=== PATIENT | male | born 1960 | race Caucasian/White ===

== ENCOUNTER → 2019-11-22 11:37 | Outpatient (BNVA) | payer MEDICARE, SELFPAY | PROVIDERS: Family Provider Family Medicine; PCP Nurse Practitioner Family; Visit Provider Nurse Practitioner Family | DX: R10.9 Unspecified abdominal pain (principal); R07.81 Pleurodynia; R91.1 Solitary pulmonary nodule | CPT/HCPCS: 71046; 71047 ==

== ENCOUNTER → 2025-01-25 12:55 | Outpatient (BNVA) | payer MEDICARE, MEDICAID, SELFPAY | PROVIDERS: Family Provider Family Medicine; PCP Nurse Practitioner Family; Referring Provider Family Medicine; Visit Provider Nurse Practitioner Family | DX: M54.12 Radiculopathy, cervical region (principal); M54.16 Radiculopathy, lumbar region; G89.29 Other chronic pain; M25.512 Pain in left shoulder; M25.511 Pain in right shoulder | CPT/HCPCS: 72040; 73030; 99214 ==

== ENCOUNTER 2025-02-01 06:00 | Outpatient (RCR) | payer MEDICARE, SELFPAY | END 2025-03-02 23:59 | disposition home or self-care (01) | LOC: MPT 06:00 | PROVIDERS: PCP Family Medicine; Visit Provider Nurse Practitioner Family | DX: M54.50 Low back pain, unspecified (principal); G89.29 Other chronic pain | CPT/HCPCS: 97110; 97162; G0283 ==

== ENCOUNTER → 2025-02-01 13:51 | Outpatient (BNVA) | payer MEDICARE, SELFPAY | PROVIDERS: Visit Provider Nurse Practitioner Family | DX: M79.18 Myalgia, other site (principal); M54.12 Radiculopathy, cervical region; G89.29 Other chronic pain; M54.16 Radiculopathy, lumbar region | CPT/HCPCS: 20553; 99214; J1010; J3490 ==

== ENCOUNTER 2025-02-07 15:35 | Outpatient (CLI) | payer MEDICARE, SELFPAY ==
--- NOTE | 2025-02-07 16:00 | MR_ITS ---
WS: [id number] MRI CERVICAL SPINE NONCONTRAST HISTORY: M54.12 - Radiculopathy, cervical region COMPARISON: None available. Technique: Multiplanar, multisequence noncontrast imaging of the cervical spine. Straightening and reversal of the normal cervical lordosis. Reversal centered at C5. Asymmetric disc space narrowing at C4-5 and C5-6. Disc spaces are all narrowed with hypertrophic osteophytes at each vertebral body level. Disc bulging at several levels. Signal within the cervical cord is normal. Visualized posterior fossa is unremarkable. Craniocervical junction, C1 and C2 relationship, odontoid process and soft tissues are normal. C2-C3: Normal. C3-C4: Mild facet arthritis. No stenosis. C4-C5: Diffuse annular disc bulging with osteophytic ridging. Effacement of ventral CSF and mild central stenosis. Larger disc osteophyte complex in the foramina, LEFT greater than RIGHT. Severe LEFT and mild RIGHT foraminal stenosis. C5-C6: Diffuse annular disc bulging with osteophytic ridging and facet arthritis. Effacement of ventral CSF and slight deformity of the ventral cord. Moderate central with severe bilateral foraminal stenosis due to disc osteophyte disease. C6-C7: Diffuse annular disc bulging with osteophytic ridging and facet arthritis. Moderate to severe central with bilateral foraminal stenosis. Effacement of CSF and deformity of the ventral cord. C7-T1: Mild facet arthritis. No stenosis. Paraspinal soft tissue are normal. MR/MR cervical spin wo con* [id number] IMPRESSION: 1. Reversal the normal cervical lordosis centered at C5. 2. Multilevel areas of significant stenosis due to combination of disc and ost eophyte complex and facet arthritis. Cord contact with mild effacement C4-5, C5 -6 and C6-7. 3. C4-5: Severe LEFT and mild RIGHT foraminal stenosis and mild central stenos is. 4. C5-6: Moderate central with severe bilateral foraminal stenosis. 5. C6-7: Moderate to severe central and bilateral foraminal stenosis.
== END 2025-02-07 15:36 | disposition home or self-care (01) ==
PROVIDERS: PCP Family Medicine; Visit Provider Nurse Practitioner Family
DX: M54.12 Radiculopathy, cervical region (principal); R93.7 Abnormal findings on diagnostic imaging of other parts of musculoskeletal system; M48.02 Spinal stenosis, cervical region; M25.78 Osteophyte, vertebrae; M47.892 Other spondylosis, cervical region; M50.321 Other cervical disc degeneration at C4-C5 level; M50.322 Other cervical disc degeneration at C5-C6 level; M50.323 Other cervical disc degeneration at C6-C7 level; M47.893 Other spondylosis, cervicothoracic region
CPT/HCPCS: 72141

== ENCOUNTER → 2025-02-10 14:09 | Outpatient (BNVA) | payer MEDICARE, SELFPAY | PROVIDERS: PCP Family Medicine; Visit Provider Orthopaedic Surgery | DX: M54.16 Radiculopathy, lumbar region (principal); G89.29 Other chronic pain; M54.12 Radiculopathy, cervical region | CPT/HCPCS: 36415; 72050; 72110; 80053; 81003; 85025; 99204 ==

== ENCOUNTER → 2025-02-15 13:32 | Outpatient (BNVA) | payer MEDICARE, SELFPAY | PROVIDERS: PCP Family Medicine; Visit Provider Nurse Practitioner Family | DX: M54.16 Radiculopathy, lumbar region (principal); G89.29 Other chronic pain; M54.12 Radiculopathy, cervical region | CPT/HCPCS: 99213 ==

== ENCOUNTER 2025-03-03 06:30 | Outpatient (RCR) | payer MEDICARE, SELFPAY | END 2025-03-16 13:00 | disposition home or self-care (01) | LOC: MPT 06:30 | PROVIDERS: PCP Family Medicine; Visit Provider Nurse Practitioner Family | DX: M54.50 Low back pain, unspecified (principal); G89.29 Other chronic pain | CPT/HCPCS: 97110; G0283 ==

== ENCOUNTER → 2025-03-04 10:16 | Outpatient (BNVA) | payer MEDICARE, SELFPAY | PROVIDERS: PCP Family Medicine; Visit Provider Family Medicine | DX: Z01.818 Encounter for other preprocedural examination (principal) | CPT/HCPCS: 93005 ==

== ENCOUNTER 2025-03-14 17:30 | Inpatient (IN) | payer MEDICARE, SELFPAY ==
[2025-03-14] VITALS (18 sets, daily range): BP systolic 109–174; BP diastolic 67–104; PULSE 71–90; RESP 13–21; TEMP 36.2–37.2; O2SAT 90–98; BMI 36.6
[2025-03-14] MEDS: sodium chloride 0.9% 1,000 ML 30 ML IV (13:06)
--- NOTE | 2025-03-14 13:11 | ANES.PREANE2 ---
Pre-Anesthetic Assessment Height/Weight: Height 1.73 m Weight 109.316 kg Temp Pulse Resp BP Pulse Ox O2 Del Method 98.1 F 71 18 152/83 98 Room Air 03/14/25 12:47 03/14/25 12:47 03/14/25 12:47 03/14/25 12:47 03/14/25 12:47 03/14/25 12:47 Preop Diagnosis: Cervical stenosis with myelopathy and radiculopathy Operation Date: 03/14/25 14:30 Proposed Procedures p Anterior Cervical Discectomy & Fusion ACDF w/ Anterior Interbody Fusion w/ Cage w/ Instrumentation w/ Allograft w/ Navigation(Not Applicable) - Dante Bennett DO Last intake: Intake Last Liquid Date 03/14/25 Last Liquid Time 11:30 Last Solid Date 03/13/25 Last Solid Time 20:00 Social No alcohol and No tobacco Exam alert, oriented x 3, clear to auscultation bilaterally and regular rate & rhythm Airway Submandibular: within normal limits Cervical ROM: Other (limited by radiculopathy ) History/ROS No significant history except as noted Musc/skel Cervical stenosis multilevel Anesthetic Plan ASA status: 3 Anesthesia: General Medications/Allergies Home Medications ?Medication ?Instructions ?Recorded ?Confirmed ?Last Taken ?Type ascorbic acid (vitamin C) 500 mg 500 mg PO DAILY 11/22/19 03/10/25 03/09/25 History capsule B12 1 tab PO DAILY 01/25/25 03/10/25 03/09/25 History Potassium 99 mg PO DAILY 01/25/25 03/10/25 03/09/25 History acetaminophen 325 mg tablet 325 mg PO QID PRN Pain 01/25/25 03/10/25 03/13/25 History (Tylenol) fenofibrate nanocrystallized 145 145 mg PO DAILY 01/25/25 03/10/25 03/13/25 History mg tablet tizanidine 4 mg tablet 4 mg PO BID PRN muscle spasticity 02/16/25 03/10/25 03/13/25 Rx #60 tabs Allergies Allergy/AdvReac Type Severity Reaction Status Date / Time oxycodone (From OxyContin) AdvReac Mild itching Verified 03/10/25 13:04 Current Medications Generic Name Dose Route Start Last Admin Trade Name Freq PRN Reason Stop Dose Admin Sodium Chloride 1,000 mls @ 30 mls/hr 03/14/25 06:30 03/14/25 13:06 Sodium Chloride 0.9% IV 03/15/25 06:29 30 mls/hr .Q24H LIVIER Administration PFSH Anesthesia Surgical History History of appendectomy H/O shoulder surgery Hx of tonsillectomy Family History Denies family history of Hyperlipidemia Hypertension Social History Smoking and tobacco/nicotine status: former use of tobacco/nicotine Data Anesthesia 03/14/25 12:54
[2025-03-14 13:14] LABS: Basophils # 0.1 10^3/uL (0.0-0.1); Basophils % 0.6 %; Eosinophils # 0.3 10^3/uL (0.0-0.8); Hematocrit 44.3 % (37-53); Lymphocytes # 2.6 10^3/uL (0.8-4.8); Lymphocytes % 25.2 %; Mean Corpuscular HGB Conc 33.6 g/dL (30-55); Mean Corpuscular Hemoglobin 30.6 pg (27-33); Mean Platelet Volume 9.7 fL (7.4-10.4); Monocytes # 1.1 10^3/uL (0.2-0.9); Monocytes % 10.4 %; Neutrophils # 6.12 10^3/uL (1.8-7.7); Neutrophils % 59.6 %; Nucleated Red Blood Cells % 0 %; Platelet Count 291 10^3/cmm (157-399); Red Blood Count 4.87 10^6/uL (3.85-5.65); Red Cell Distribution Width 13.2 % (12.1-15.1); White Blood Count 10.27 10^3/uL (3.29-11.43)
[2025-03-14] MEDS: ceFAZolin 2,000 mg SDV 2000 MG IVP ×2 (13:21→22:49)
[2025-03-14] MEDS: lidocaine-epi 1% 20 mL INJ 10 ML INJECTION (15:44)
--- NOTE | 2025-03-14 16:37 | XR_ITS ---
WS: [id number] Exam: XR lumbar spine 2-3V* [id number] Date/Time of Exam: 03/14/2025 4:37 PM Reason For Exam: OR PICS Limited AP and lateral C-arm images of the C-spine are submitted. Images were obtained for intraoperative visualization purposes.
--- NOTE | 2025-03-14 17:15 | P.OP_ITS ---
Operative Report Date of procedure: March 14, 2025 Pre-op diagnosis: Cervical stenosis with myelopathy Post-op diagnosis: same Procedure done: 1. Anterior discectomy C3/4 2. Anterior discectomy C4/5 3. Anterior diskectomy C5/6 4. Anterior discectomy C6/7 5. Insertion of cage at C3/4 6. Insertion of cage at C4/5 7. Insertion of cage C5/6 8. Insertion of Cage C6/7 9. Instrumentation with anterior plate from C3-C7 10. Use of allograft Surgeon: Dante Bennett DO Estimated blood loss (mL): 100 Procedure: 1. Anterior discectomy C3/4 2. Anterior discectomy C4/5 3. Anterior diskectomy C5/6 4. Anterior discectomy C6/7 5. Insertion of cage at C3/4 6. Insertion of cage at C4/5 7. Insertion of cage C5/6 8. Insertion of Cage C6/7 9. Instrumentation with anterior plate from C3-C7 10. Use of allograft The patient was taken to the operating room, where he underwent general endotracheal anesthesia without complications. He was then positioned supine on the operating table, and all areas of impingement were well padded. The arms were carefully padded and tucked at his sides. A roll was placed between the shoulder blades.. An x-ray was done to determine the appropriate level for the skin incision. The entire neck was then sterilely prepped and draped in the usual fashion. Neuromonitoring was attached prior to prepping. A transverse skin incision was made and carried down to the platysma muscle. This was then split in line with its fibers. Blunt dissection was carried down medial to the carotid sheath and lateral to the trachea and esophagus until the anterior cervical spine was visualized. A needle was placed into a disc and an x-ray was done to determine its location. The longus colli muscles were then elevated bilaterally with the electrocautery unit. Self-retaining retractors were placed deep to the longus colli muscle. The x-ray was taken patient still had a kyphotic deformity at C3-4 level at this point felt like patient was given collapse above the C4-7 construct so I elected to proceed with doing a C3-4 ACDF as well. Attention was brought to the C3/4 level that was confirmed on x-ray. A caspar pin was placed into the C3 vertebrae and the C4 vertebrae. The disk space was then distracted. The microscope was then brought in. A radical anterior discectomies were performed at C3/4. This included complete removal of the anterior annulus, nucleus, and posterior annulus. The posterior longitudinal ligament was removed as were the posterior osteophytes. Foraminotomies were then accomplished bilaterally. This was done using a high speed vandana, kerrison rongeurs and curretes Once all of this was accomplished, the curved currette was used to check for any residual compression. The central canal was wide open as were the foramen. A high-speed bur was used to remove the cartilaginous endplates above and below the interspace. Bleeding cancellous bone was exposed. The disc space were measured and appropriate size cage were placed sterilely onto the field. Allograft graft was packed into the cages. The cage was then placed and there was good juxtaposition against the bleeding decorticated surfaces and good distraction of each interspace. Attention was brought to the next interspace. The Saint Helen pins were removed. Bone wax was used to prevent any bleeding from occurring at the pin sites. Attention was brought to the C4/5 level that was confirmed on x-ray. A caspar pin was placed into the C4 vertebrae and the C5 vertebrae. The disk space was then distracted. The microscope was then brought in. A radical anterior discectomies were performed at C4/5. This included complete removal of the anterior annulus, nucleus, and posterior annulus. The posterior longitudinal ligament was removed as were the posterior osteophytes. Foraminotomies were then accomplished bilaterally. This was done using a high speed vandana, kerrison jamie geurs and curretes Once all of this was accomplished, the curved currette was used to check for any residual compression. The central canal was wide open as were the foramen. A high-speed bur was used to remove the cartilaginous endplates above and below the interspace. Bleeding cancellous bone was exposed. The disc space were measured and appropriate size cage were placed sterilely onto the field. Allograft graft was packed into the cages. The cage was then placed and there was good juxtaposition against the bleeding decorticated surfaces and good distraction of each interspace. Attention was brought to the next interspace. The [place] Helen pins were removed. Bone wax was used to prevent any bleeding from occurring at the pin sites. Attention was brought to the C5/6 level that was confirmed on x-ray. A caspar pin was placed into the C5 vertebrae and the C6 vertebrae. The disk space was then distracted. The microscope was then brought in. A radical anterior discectomies were performed at C5/6. This included complete removal of the anterior annulus, nucleus, and posterior annulus. The posterior longitudinal ligament was removed as were the posterior osteophytes. Foraminotomies were then accomplished bilaterally. This was done using a high speed vandana, kerrison rongeurs and curretes Once all of this was accomplished, the curved currette was used to check for any residual compression. The central canal was wide open as were the foramen. A high-speed bur was used to remove the cartilaginous endplates above and below the interspace. Bleeding cancellous bone was exposed. The disc space were measured and appropriate size cage were placed sterilely onto the field. Allograft graft was packed into the cages. The cage was then placed and there was good juxtaposition against the bleeding decorticated surfaces and good distraction of each interspace. Attention was brought to the next interspace. The Saint Helen pins were removed. Bone wax was used to prevent any bleeding from oc curring at the pin sites. Attention was brought to the C6/7 level that was confirmed on x-ray. A caspar pin was placed into the C6 vertebrae and the C7 vertebrae. The disk space was then distracted. The microscope was then brought in. A radical anterior discectomies were performed at C6/7. This included complete removal of the anterior annulus, nucleus, and posterior annulus. The posterior longitudinal ligament was removed as were the posterior osteophytes. Foraminotomies were then accomplished bilaterally. This was done using a high speed vandana, kerrison rongeurs and curretes Once all of this was accomplished, the curved currette was used to check for any residual compression. The central canal was wide open as were the foramen. A high-speed bur was used to remove the cartilaginous endplates above and below the interspace. Bleeding cancellous bone was exposed. The disc space were measured and appropriate size cage were placed sterilely onto the field. Allograft graft was packed into the cages. The cage was then placed and there was good juxtaposition against the bleeding decorticated surfaces and good distraction of each interspace. The Saint Helen pins were removed. Bone wax was used to prevent any bleeding from occurring at the pin sites. The appropriate size anterior cervical locking plate was chosen and bent into gentle lordosis. Two screws were then placed into each of the vertebral bodies at C3, C4, C5, C6 and C7. There was excellent purchase. A final x-ray was done confirming good position of the hardware and Cages. The locking screws were then applied, also with excellent purchase. Following a final copious irrigation, there was good hemostasis and no dural leaks. The carotid pulse was strong. The wounds were then closed in layers using 2-0 Vicryl suture for the platysma muscle, 2-0 Vicryl suture for the subcutaneous tissue, and 4-0 monocryl suture in a subcuticular skin closure. Glue was placed followed by application of a sterile dressing. The drain was hooked to bulb suction. A soft collar was applied. The patient was then carefully returned to the supine position on his hospital bed where he was reversed and extubated and taken to the recovery room having tolerated the procedure well.
--- NOTE | 2025-03-14 18:04 | ANE.PACU2 ---
Inpatient post-anesthesia follow up: Airway intact: Yes Vital signs: Temperature 98.2 F Pulse Rate 79 Respiratory Rate 14 Blood Pressure 117/67 Pulse Oximetry 94 Oxygen Delivery Me thod Nasal Cannula Oxygen Flow Rate 2 Fraction of Inspir ed Oxygen Hydration adequate: Yes Nausea and vomiting: No Pain level: well controlled Mental status: Baseline Additional Comments: plan to use O2/BIPAP/continuous oximetry for immediate post op period. Respiratory consult initiated.
--- NOTE | 2025-03-14 18:16 | PC.NURSE ---
Patient taken to room 252-2 via bed accompanied by 2. VS taken Temp 98.9, Hr 82, RR 18, BP 127/74, 93% on 2LNC. Lashaun, RN at bedside, RT at bedside setting up BIPAP per Dr. Laird's orders.
[2025-03-14] MEDS: ketorolac 30 mg/mL INJ IVP (18:33)
[2025-03-14] MEDS: lactated ringers 1,000 ML 90 ML IV (18:33)
--- OUTSIDE RECORDS SUMMARY | 2025-03-14 21:22 | XMS_ITS | Encounter Summary ---
Author Organization [facility] Address [address] [place] [address] Care Team Providers Care Director Of Field Coordination Name Role Phone Unavailable Primary Care Provider Unavailabl e Encounter Details Date Type Department Care Team (Latest Contact Info) Description 11/19/2005 Outpatient Historical [facility] Orthopedics- 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
--- OUTSIDE RECORDS SUMMARY | 2025-03-14 21:22 | XMS_ITS | Encounter Summary ---
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
--- OUTSIDE RECORDS SUMMARY | 2025-03-14 21:22 | XMS_ITS | Encounter Summary ---
Author Organization [facility] Address [address] [place] [address] Care Team Providers Care Engagement Quality Consultant Name Role Phone Unavailable Primary Care Provider Unavailabl e Encounter Details Date Type Department Care Team (Late st Contact Info) Description 10/30/2005 Emergency [facility] Emergency Department [address] 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
--- OUTSIDE RECORDS SUMMARY | 2025-03-14 21:22 | XMS_ITS | Clinical Summary ---
Author Organization [email or web address] Address [address] 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
--- OUTSIDE RECORDS SUMMARY | 2025-03-14 21:22 | XMS_ITS | Encounter Summary ---
Author Organization [facility] Address [address] [place] [address] Care Team Providers Care Discharge Door Operator Name Role Phone Unavailable Primary Care Provider Unavailabl e Encounter Details Date Type Department Care Team (Latest Contact Info) Description 11/26/2005 Outpatient Historical [facility] Orthopedics- 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
--- OUTSIDE RECORDS SUMMARY | 2025-03-14 21:22 | XMS_ITS | Encounter Summary ---
Author Organization [facility] Address [address] [place] [address] Care Team Providers Care Load Planner Name Role Phone Unavailable Primary Care Provider Unavailabl e Encounter Details Date Type Department Care Team (Latest Contact Info) Description 11/01/2005 Outpatient Historical [facility] [address] [place] [phone] Sriram Vega MD [address] [place] [address] FX MID/PRX PHAL, HAND-CLOSE (Primary Dx) Social History Tobacco Use Types Packs/Day Years Used Date Smoking Tobacco: Never Assessed Sex and Gender Information Value Date Recorded Sex Assigned at Not on file 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
--- OUTSIDE RECORDS SUMMARY | 2025-03-14 21:22 | XMS_ITS | Encounter Summary ---
Author Organization [facility] Address [address] [place] [address] Care Team Providers Care Irrigation Teacher Name Role Phone Unavailable Primary Care Provider Unavailabl e Encounter Details Date Type Department Care Team (Latest Contact Info) Description 10/30/2005 Outpatient Historical [facility] Orthopedics- 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
--- OUTSIDE RECORDS SUMMARY | 2025-03-14 21:22 | XMS_ITS | Encounter Summary ---
Author Organization [facility] Address [address] [place] [address] Care Team Providers Care Manager Enterprise Content Management Name Role Phone Unavailable Primary Care Provider Unavailabl e Encounter Details Date Type Department Care Team (Latest Contact Info) Description 11/13/[address] [facility] Orthopedics- 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
[2025-03-14] MEDS: lidocaine 5% Patch 1 PATCH TOPICAL (22:49)
--- NOTE | 2025-03-14 22:55 | PC.NURSE ---
PT states his urine bolton last two times he has used the toilet
--- NOTE | 2025-03-15 00:05 | PC.NURSE ---
patient has complaints of lower back pain and asking for a pain patch. dr laguerre notified and an order for a lidocaine patch was given. nurse asked dr laguerre how he wanted to order wrote up and he states i have no idea, i have never wrote one out for the floor, however pharmacy writes it out is fine. nurse put in an order for a lidocaine 5% patch apply in evening and remove in morning.
[2025-03-15 01:00] VITALS: BP 120/63; PULSE 84; RESP 18; TEMP 36.4; O2SAT 100
--- NOTE | 2025-03-15 03:56 | PC.NURSE ---
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 patient has no signs of blood in his urine, and is urinating atleast 200ml each time he goes.
[2025-03-15 04:16] VITALS: BP 145/70; PULSE 76; RESP 17; TEMP 36.7; O2SAT 93
[2025-03-15 04:47] VITALS: PULSE 83; O2SAT 95
[2025-03-15] MEDS: lactated ringers 1,000 ML 90 ML IV (05:53)
[2025-03-15] MEDS: ceFAZolin 2,000 mg SDV 2000 MG IVP (05:53)
--- NOTE | 2025-03-15 05:55 | PC.NURSE ---
Addendum entered by Misty Patterson LPN 03/15/25 05:59: patient pulled out iv in right hand. catheter intact upon removal. tolerated well. Original Note: patient getting up to sit on the side of the bed and pulled his hemovac drain out. nurse emptied 100ml serosanginious drainage, nurse called dr laguerre and notified him and he ordered for the dressing to be changed. silverlon dressing covering surgical inscision, dry and intact. patient has no complaints of pain at this time. daughter at bedside
[2025-03-15 07:11] VITALS: BP 161/74; PULSE 78; TEMP 36.6; O2SAT 97
--- NOTE | 2025-03-15 07:48 | P.DS_ITS ---
Discharge Providers Date of Admission: 03/14/25 17:30 Date of Discharge: March 15, 2025 Attending Provider at Admission: Dante Bennett DO Attending Provider at Discharge: Dante Bennett DO Primary Care Provider: Rachel Philip MD Reason for Visit Reason for Visit: M47.12 Physical Exam Narrative: Patient doing well drain was pulled out this morning. Patient sitting up eating. Urinary Catheter Management: Sandra: Cath Placed During This Visit: yes, but has since been removed by the nurse Urinary Catheter Date of Insertion: 03/14/25 Urinary Catheter Time of Insertion: 13:35 Date Urinary Catheter Removed: 03/14/25 Time Urinary Catheter Discontinued: 16:45 Discharge Data Studies Completed and Pending Pending at discharge Category Date Time Status XR lumbar spine 2-3V* 95277 Routine Exams 03/14/25 16:37 Taken Laboratory Results WBC 10.27 10^3/uL (3.29-11.43) 03/14/25 12:54 RBC 4.87 10^6/uL (3.85-5.65) 03/14/25 12:54 Hgb 14.90 g/dL (11.27-16.99) 03/14/25 12:54 Hct 44.3 % (37-53) 03/14/25 12:54 MCV 91.0 fl (82-101) 03/14/25 12:54 MCH 30.6 pg (27-33) 03/14/25 12:54 MCHC 33.6 g/dL (30-55) 03/14/25 12:54 RDW 13.2 % (12.1-15.1) 03/14/25 12:54 Plt Count 291 10^3/cmm (157-399) 03/14/25 12:54 MPV 9.7 fL (7.4-10.4) 03/14/25 12:54 Neut % (Auto) 59.6 % 03/14/25 12:54 Lymph % (Auto) 25.2 % 03/14/25 12:54 [place] % (Auto) 10.4 % 03/14/25 12:54 Eos % (Auto) 3.0 % 03/14/25 12:54 Baso % (Auto) 0.6 % 03/14/25 12:54 Neut # (Auto) 6.12 10^3/uL (1.8-7.7) 03/14/25 12:54 Lymph # (Auto) 2.6 10^3/uL (0.8-4.8) 03/14/25 12:54 [place] # (Auto) 1.1 10^3/uL (0.2-0.9) H 03/14/25 12:54 Eos # (Auto) 0.3 10^3/uL (0.0-0.8) 03/14/25 12:54 Baso # (Auto) 0.1 10^3/uL (0.0-0.1) 03/14/25 12:54 Nucleated RBC % (auto) 0 % 03/14/25 12:54 Nucleated RBCs # 0.0 /100WBC 03/14/25 12:54 Blood Type A Positive 03/14/25 12:54 Rho(D) Type Rh positive 03/14/25 12:54 Antibody Screen Negative 03/14/25 12:54 Vitals Last Vital Signs Temp 97.8 F 03/15/25 07:11 Pulse 78 03/15/25 07:11 Resp 17 03/15/25 04:16 BP 161/74 03/15/25 07:11 Pulse Ox 97 03/15/25 07:11 O2 Del Method Nasal Cannula 03/15/25 07:11 O2 Flow Rate 3 03/15/25 07:11 FiO2 30 03/14/25 18:30 Discharge Plan Discharge Patient Disposition: Home Condition: Stable Prescriptions: New hydrocodone-acetaminophen 5-325 mg tablet 1 - 2 tab PO .Q4-6H Qty: 40 0RF hydrocodone-acetaminophen 5-325 mg tablet 1 - 2 tab PO .Q4-6H Qty: 40 0RF Continued ascorbic acid (vitamin C) 500 mg capsule 500 mg PO DAILY fenofibrate nanocrystallized 145 mg tablet 145 mg PO DAILY B12 tablet 1 tab PO DAILY Potassium tablet 99 mg PO DAILY tizanidine 4 mg tablet 4 mg PO BID PRN (Reason: muscle spasticity) Qty: 60 6RF Discontinued acetaminophen [Tylenol] 325 mg tablet 325 mg PO QID PRN (Reason: Pain) Discharge Orders: Discharge Order (Routine); Ordered 03/15/25 Ordered By: Dante Bennett Discharge Diet: Advance as tolerated Discharge Activity: Limit activity as instructed Patient Instructions: Acute Wound Care (DC), Opioid Safety, Post Anesthesia Care Activity Restrictions/Additional Instructions: Thank you for choosing [facility] for your care! The following is a list of instructions, from your provider, to follow upon your discharge to ensure you have the optimal recovery from your recent injury or surgery. Anterior Cervical Discectomy and Fusion: What to Expect at Home Your Recovery Follow-up care is a kellogg part of your treatment and safety. Be sure to make and go to all appointments, and call your doctor if you are having problems. If you do not already have a follow-up appointment made, call office in the next 1-3 days to make follow up appointment for 2 weeks at [phone]. It is also a good idea to know your test results and keep a list of the medicines you take. You can expect your neck to feel stiff or sore after surgery. This should improve in the weeks after surgery. But it may take 4 to 6 months for you to get better completely. You may have trouble sitting or standing in one position for very long and may need pain medicine in the weeks after your surgery. It may take 4 to 6 weeks to get back to your usual activities, but it may depend on what kind of surgery you had. Your throat will feel sore and it may be difficult to swallow for the first 3 days after your surgery. As long as you can get liquids down without difficulty, this should slowly improve, otherwise call our office or seek medical attention if it becomes increasingly difficult to get anything down including liquids. Avoid hot liquids for first 3-5 days. Soothing foods/liquids such as jello, pudding, and luke warm soups are recommended until swallowing improves. Staying elevated will also help, it's advised you keep propped up at while sleeping to help reduce the swelling. You may use an ice pack directly on your incision or around it on the front of your neck, using a cloth to protect your skin; and a heating pad to the back of your neck as needed. Do not use over the counter anti-inflammatory medications (Ibuprofen, Motrin, Aleve, Advil, etc) Taking these meds after having a fusion can delay fusion rates, we recommend you avoid them for the first 3 months after your surgery[address] Dr. Bennett may advise you to work with a physical therapist to strengthen the muscles around your neck and back - this will be discussed at your follow - up appointments. The pain or numbness you were having in your arms before surgery should get better or go away completely. This care sheet gives you a general idea about how long it will take for you to recover. But each person recovers at a different pace. Follow the steps below to get better as quickly as possible. How can you care for yourself at home? Activity ? Rest when you feel tired. Getting enough sleep will help you recover. ? Try to walk each day. Start by walking a little more than you did the day before. Bit by bit, increase the amount you walk. Walking boosts blood flow and helps prevent pneumonia and constipation. Walking may also decrease your muscle soreness after surgery. ? No lifting anything that is more that 5 pounds. This may include heavy grocery bags and milk containers, a heavy briefcase or backpack, cat litter or dog food bags, a child, or a vacuum fish cleaner. ? Avoid strenuous activities, such as bicycle riding, jogging, weigh tlifting, or aerobic exercise, until your doctor says it is okay. ? Do not drive until your follow-up visit after your surgery, or until your doctor says it isokay. ? Avoid taking long car trips for 2 to 4 weeks after surgery. Your neck may become tired and painful from sitting too long in one position. ? You will probably need to take 4 to 6 weeks off from work. It depends on the type of work you do and how you feel. ? You may have sex as soon as you feel able, but avoid positions that put stress on your neck or cause pain. Diet ? You can eat your normal diet. If your stomach is upset, try bland, low-fat foods like plain rice, broiled chicken, toast, and yogurt ? Drink plenty of fluids. If you have kidney, heart, or liver disease and have to limit fluids, talk with your doctor before you increase the amount of fluids you drink. ? You may notice that your bowel movements are not regular right after your surgery. This is common. Try to avoid constipation and straining with bowel movements. You may want to take a fiber supplement every day. If you have not had a bowel movement after a couple of days, ask your doctor about taking a mild laxative. Medicines ? Take pain medicines exactly as directed. 1. If Dr. Bennett gave you a prescription medicine for pain, take lt as prescribed. 2. Do not take two or more pain medicines at the same time unless the doctor told you to. Many pain medicines have acetaminophen, which is Tylenol. Too much acetaminophen {Tylenol) can be harmful. 3. If you think your pain pill is making you sick to your stomach: 4. Take your pills after meals (unless your doctor has told you not to). 5. Ask your Dr. for a different pain pill. Incisioncare ? Remove your dressing 48hours after your surgery. Ok to shower and get the incision wet. Do not overtly wash your incision. When done, pad dry, leave open to air thereafter. Avoid creams and ointments directly on your incision. ? Your sutures in the incision will dissolve and fall out on their own. ? Keep the area clean and dry. You may cover it with a gauze bandage if it weeps or rubs against clothing; if you choose to do this, change the dressing everyday. Other instructions ? Use a heating pad, hot water bottle, or gentle massage on your back to reduce stiffness. Avoid putting heat on your incision When should you call for help? ? Call 911 anytime you think you may need emergency care. For example, call if: ? You pass out (lose consciousness). ? You have sudden chest pain and shortness of breath, or you cough upblood. ? You cannot swallow. ? You have severe pain in your neck or back. ? Call your Dr. or seek immediate medical care if: ? You have pain that does not get better after you take pain pills. ? You have loose stitches, or your incision comes open. ? You have blood or fluid draining from the incision. ? You have signs of infection, such as: 1. Increased pain, swelling, warmth, or redness. 2. Red streaks leading from the site. 3. Pus draining from the site. 4. Swollen lymph nodes in your neck or armpits. 5. A fever. ? You have severe pain in your arms. ? You have new or increased weakness or numbness in your arms. ? Watch closely for any changes in your health, and be sure to contact your doctor if: ? You do not have a bowel movement after taking a laxative. Discharge Attestations Time Spent in Discharge Care*: less than 30 min Quality Metrics Clinical Quality Measures [ No reported AMI, CVA or VTE this stay] Coding Level of Care Code Acute Code for Chg Fwd
[2025-03-15] MEDS: fenofibrate 145 mg Tablet PO (08:57)
[2025-03-15] MEDS: HYDROcodone-acetaminophen 5-325 mg Tablet PO (08:58)
[2025-03-15] MEDS: docusate sodium 100 mg Capsule PO (08:58)
== END 2025-03-15 09:10 | disposition home or self-care (01) | DRG 473 ==
LOC: MEDSURG 19:31
PROVIDERS: Anesthesiology; Admitting Provider Orthopaedic Surgery; PCP Family Medicine; Visit Provider Orthopaedic Surgery
PROC: 0RB30ZZ Excision of Cervical Vertebral Disc, Open Approach (ICD-10-PCS; CPT 22551; principal; 2025-03-14 14:30)
DX: M47.12 Other spondylosis with myelopathy, cervical region (principal)
CPT/HCPCS: 36415; 51702; 72100; 76000; 85025; 86850; 86900; 94660; 97110; 97161; C1713; C1763; C9359; J0330; J0690; J1100; J1171; J1885; J2250; J2405; J2704; J2710; J3010; J3490; J7030; J7120; J9999

== ENCOUNTER → 2025-03-29 10:07 | Outpatient (BNVA) | payer MEDICARE, SELFPAY | PROVIDERS: PCP Family Medicine; Visit Provider Orthopaedic Surgery | DX: Z98.1 Arthrodesis status (principal) | CPT/HCPCS: 99024 ==

== ENCOUNTER 2025-04-12 11:54 | Emergency (ER) | payer MEDICARE, SELFPAY ==
[2025-04-12 11:57] VITALS: BP 130/65; TEMP 36.6; BMI 35.7
--- NOTE | 2025-04-12 12:28 | ECG_ITS ---
[facility] Test Date: 2025-04-12 Pat Name: Delonte Webster Department: Room: Gender: Male Costumed Character Entertainer: : 1960 Requested By: Jourdan Miramontes Order Number: [id number] Rhianna MD: Kvng Ward M.D. Measurements Intervals [place] Rate: 68 P: 50 HI: 142 QRS: 65 QRSD: 101 T: 66 QT: 378 QTc: 403 Interpretive Statements SINUS RHYTHM Compared to ECG 03/04/2025 10:34:53 No significant changes Electronically Signed On 04-13-2025 22:04:35 CDT by Kvng Ward M.D. [email or web address]
--- NOTE | 2025-04-12 12:28 | W.ED.GENADLT ---
HPI - General Adult General: Chief complaint: General Medical Stated complaint: lightheaded Time Seen by Provider: 04/12/25 12:03 History of Present Illness: Chief complaint is feeling lightheaded and low blood pressure. History is obtained from the patient and the . Patient was outside all day in the heat. This morning he was feeling lightheaded during breakfast and so his checked his blood pressure and it was 88 systolic. He states he feels fine now. He had no chest pain or palpitations or shortness of breath. Related Data Home Medications ?Medication ?Instructions ?Recorded ?Confirmed ascorbic acid (vitamin C) 500 mg 500 mg PO DAILY 11/22/19 03/29/25 capsule B12 1 tab PO DAILY 01/25/25 03/29/25 Potassium 99 mg PO DAILY 01/25/25 03/29/25 fenofibrate nanocrystallized 145 145 mg PO DAILY 01/25/25 03/29/25 mg tablet Previous Rx's ?Medication ?Instructions ?Recorded tizanidine 4 mg tablet 4 mg PO BID PRN muscle spasticity 02/16/25 #60 tabs hydrocodone 5 mg-acetaminophen 325 1 - 2 tab PO .Q4-6H #40 tabs 03/15/25 mg tablet hydrocodone 5 mg-acetaminophen 325 1 - 2 tab PO .Q4-6H #40 tabs 25 mg tablet Allergies Allergy/AdvReac Type Severity Reaction Status Date / Time oxycodone (From OxyContin) AdvReac Mild itching Verified 03/10/25 13:04 [facility] PFSH: Surgical History History of appendectomy H/O shoulder surgery Hx of tonsillectomy Family History Denies family history of Hyperlipidemia Hypertension Social History Smoking and tobacco/nicotine status: never used tobacco/nicotine Physical Exam Narrative: EXAM NARRATIVE: Patient sitting up in the bed alert talkative interactive in no acute distress. He has good skin tone and color. No diaphoresis. Normal conjunctiva. Pupils are equal and reactive. Patient has no tenderness over his neck or warmth or swelling. Abdomen soft nontender. Lung sounds are clear and heart regular rhythm. No extremity edema. No rash in exposed areas. He has intact sensation in his inner thighs and his legs. He reports he has some tingling in both hands subjectively but has intact sensation to light touch. He has some limited range of motion of his neck which she states is constant since he had his surgery. Speech is clear. No drift in his arms. Course Vital Signs: Vital signs: Vital Signs Temperature 97.8 F 04/12/25 11:57 Pulse Rate 58 L 04/12/25 13:55 Blood Pressure 164/79 04/12/25 13:55 Oxygen Delivery Me thod Room Air 04/12/25 11:57 MDM - General Adult Medical Decision Making Patient presents complaining of feeling lightheaded during breakfast today. His checked his blood pressure and it was 88. He had no diaphoresis and did not feel like he was in a pass out. He states he had no associated palpitation shortness of breath chest pain or chest discomfort or discomfort in his upper jaw or back or neck that is new. He has some chronic back pain. He states that he had surgery on his neck about 5 weeks ago and has some pain posteriorly in his neck on both sides that is been there ever since the surgery. He states is not gotten any worse or changed. He still has some residual tingling in fingers of both hands that he states is unchanged since surgery. No loss of bowel or bladder control. No new numbness or weakness in his arms or legs. No fever. Denies black or bloody stools. Denies vomiting or diarrhea. Denies any headache. He was outside in the heat all day yesterday according to his . He states he had normal urination. I ordered 1 L normal saline IV fluid bolus. Ordered CBC CMP and EKG. Differential is very broad. Certainly would be at risk for PE at after having surgery but he denies any pleurisy or chest pain or shortness of breath or palpitations. He denies having cough. Cardiac dysrhythmia, dehydration, vasovagal syncope, infectious process, blood loss, extremely broad differential. Patient currently asymptomatic well-appearing in no acute distress. He is not hypotensive on the monitor. I discussed with patient and broad differential and limits of ED evaluation. Patient's creatinine is elevated above his baseline. He has been taking ibuprofen on a regular basis and he was out in the heat. I advised him dangers of NSAID use and effect on his renal function. Advised cautions with some of his other medications as well and prompt follow-up with his doctor to recheck his kidney function and to review his medications. Advised to hold off on further NSAIDs until cleared by his doctor. Patient white count is not elevated. Hemoglobin not significantly changed. Patient EKG to monitor potation shows sinus rhythm with a rate of 68 bpm. Patient does not feel orthostatic with standing and his blood pressure and heart rate do not drop significantly with standing. Patient wants to continue outpatient management which is reasonable. I discussed with he and his treatment plan and limits of ED evaluation and need for follow-up. Patient does not feel that he has any new symptoms with his neck to suggest acute postoperative complication. Lab Data 04/12/25 12:24 04/12/25 12:24 Laboratory Results WBC 7.76 10^3/uL (3.29-11.43) 04/12/25 12:24 RBC 4.26 10^6/uL (3.85-5.65) 04/12/25 12:24 Hgb 13.10 g/dL (11.27-16.99) 04/12/25 12:24 Hct 39.5 % (37-53) 04/12/25 12:24 MCV 92.7 fl (82-101) 04/12/25 12:24 MCH 30.8 pg (27-33) 04/12/25 12:24 MCHC 33.2 g/dL (30-55) 04/12/25 12:24 RDW 13.3 % (12.1-15.1) 04/12/25 12:24 Plt Count 258 10^3/cmm (157-399) 04/12/25 12:24 MPV 9.6 fL (7.4-10.4) 04/12/25 12:24 Neut % (Auto) 60.2 % 04/12/25 12:24 Lymph % (Auto) 22.2 % 04/12/25 12:24 [place] % (Auto) 12.6 % 04/12/25 12:24 Eos % (Auto) 3.6 % 04/12/25 12:24 Baso % (Auto) 0.8 % 04/12/25 12:24 Neut # (Auto) 4.67 10^3/uL (1.8-7.7) 04/12/25 12:24 Lymph # (Auto) 1.7 10^3/uL (0.8-4.8) 04/12/25 12:24 [place] # (Auto) 1.0 10^3/uL (0.2-0.9) H 04/12/25 12:24 Eos # (Auto) 0.3 10^3/uL (0.0-0.8) 04/12/25 12:24 Baso # (Auto) 0.1 10^3/uL (0.0-0.1) 04/12/25 12:24 Nucleated RBC % (auto) 0 % 04/12/25 12:24 Nucleated RBCs # 0.0 /100WBC 04/12/25 12:24 Sodium 141 mmol/L (136-145) 04/12/25 12:24 Potassium 4.2 mmol/L (3.5-5.1) 04/12/25 12:24 Chloride 105 mmol/L (98-107) 04/12/25 12:24 Carbon Dioxide 24 mmol/L (22-29) 04/12/25 12:24 Anion Gap 16.2 (5-19) 04/12/25 12:24 BUN 18 mg/dL (8-23) 04/12/25 12:24 Creatinine 1.4 mg/dL (0.7-1.2) H 04/12/25 12:24 GFR Calculation 50.9 mL/min (90-130) L 04/12/25 12:24 Glucose 89 mg/dL (65-115) 04/12/25 12:24 Calculated Osmolality 293 mOsm/kg (285-295) 04/12/25 12:24 Calcium 9.1 mg/dL (8.5-10.5) 04/12/25 12:24 Total Bilirubin 0.3 mg/dL (0.15-1.2) 04/12/25 12:24 AST 14 U/L (0-40) 04/12/25 12:24 ALT 18 U/L (0-41) 04/12/25 12:24 Alkaline Phosphatase 69 U/L (40-130) 04/12/25 12:24 Total Protein 6.6 g/dL (6.6-8.7) 04/12/25 12:24 Albumin 4.0 g/dL (3.5-5.2) 04/12/25 12:24 Globulin 2.6 g/dL (1.3-4.6) 04/12/25 12:24 Urine Color Yellow (Yellow) 04/12/25 12:30 Urine Appearance Clear (CLEAR) 04/12/25 12:30 Urine pH 8.5 (5-7) A 04/12/25 12:30 Ur Specific [place] 1.029 (1.005-1.030) 04/12/25 12:30 Urine Protein Trace (Negative) A 04/12/25 12:30 Urine Glucose (UA) Negative (Normal) 04/12/25 12:30 Urine Ketones Trace (Negative) 04/12/25 12:30 Urine Blood Negative (Negative) 04/12/25 12:30 Urine Nitrate Negative (Negative) 04/12/25 12:30 Urine Bilirubin Negative (Negative) 04/12/25 12:30 Urine Urobilinogen 1.0 mg/dL (Negative) 04/12/25 12:30 Ur Leukocyte Esterase Negative (Negative) 04/12/25 12:30 Urine RBC 0-2 /hpf (0-2) 04/12/25 12:30 Urine WBC 0-5 /hpf (0-5) 04/12/25 12:30 Ur Squamous Epith Cells 0-5 /hpf (0-5) 04/12/25 12:30 Amorphous Sediment Not Reportable 04/12/25 12:30 Urine Bacteria None seen /hpf (NONE) 04/12/25 12:30 Hyaline Casts 19.02 /lpf 04/12/25 12:30 All radiology interpretation(s) finalized by discharge Discharge Plan Discharge Patient Disposition: Home Clinical Impression: Light-headedness, Acute renal insufficiency Condition: Stable Prescriptions: No Action ascorbic acid (vitamin C) 500 mg capsule 500 mg PO DAILY fenofibrate nanocrystallized 145 mg tablet 145 mg PO DAILY B12 tablet 1 tab PO DAILY Potassium tablet 99 mg PO DAILY tizanidine 4 mg tablet 4 mg PO BID PRN (Reason: muscle spasticity) Qty: 60 6RF hydrocodone-acetaminophen 5-325 mg tablet 1 - 2 tab PO .Q4-6H Qty: 40 0RF hydrocodone-acetaminophen 5-325 mg tablet 1 - 2 tab PO .Q4-6H Qty: 40 0RF Discharge Orders: Discharge ED (Routine); Ordered 04/12/25 Ordered By: Jourdan Miramontes Referrals: Rachel Philip MD [Primary Care Provider, Family Practice] Patient Instructions: Opioid Safety, Pain Management Activity Restrictions/Additional Instructions: Follow-up to recheck your kidney function with your doctor. Please follow-up within the next week. Come back if lightheadedness or dizziness, chest pain or shortness of breath, weakness, any concerns. Avoid heights or driving or exertion. Avoid heat. As discussed do not take NSAIDs such as ibuprofen unless directed by your doctor. Do not take any medications more than as specified on the instructions as discussed. Follow-up with your surgeon and primary care doctor for further evaluation and care and management of your medications. Please follow-up on your test results with your doctor. Print Language: Icelandic Coding Level of Care Code ED Taker Off Braker Machine for Teodora Gonzalez
[2025-04-12] MEDS: sodium chloride 0.9% 1,000 ML 999 ML IV (12:50)
[2025-04-12 12:56] LABS: Basophils # 0.1 10^3/uL (0.0-0.1); Basophils % 0.8 %; Eosinophils # 0.3 10^3/uL (0.0-0.8); Eosinophils % 3.6 %; Hematocrit 39.5 % (37-53); Lymphocytes # 1.7 10^3/uL (0.8-4.8); Lymphocytes % 22.2 %; Mean Corpuscular HGB Conc 33.2 g/dL (30-55); Mean Corpuscular Hemoglobin 30.8 pg (27-33); Mean Corpuscular Volume 92.7 fl (82-101); Mean Platelet Volume 9.6 fL (7.4-10.4); Monocytes % 12.6 %; Neutrophils # 4.67 10^3/uL (1.8-7.7); Neutrophils % 60.2 %; Nucleated Red Blood Cells % 0 %; Platelet Count 258 10^3/cmm (157-399); Red Blood Count 4.26 10^6/uL (3.85-5.65); Red Cell Distribution Width 13.3 % (12.1-15.1); White Blood Count 7.76 10^3/uL (3.29-11.43)
[2025-04-12 13:13] LABS: Alanine Aminotransferase 18 U/L (0-41); Alkaline Phosphatase 69 U/L (40-130); Anion Gap 16.2 (5-19); Aspartate Amino Transferase 14 U/L (0-40); Blood Urea Nitrogen 18 mg/dL (8-23); Calcium 9.1 mg/dL (8.5-10.5); Carbon Dioxide 24 mmol/L (22-29); Chloride 105 mmol/L (98-107); Creatinine Clr Calc Pharmacy 62.2601; Globulin 2.6 g/dL (1.3-4.6); Glomerular Filtration Rate 50.9 mL/min (90-130); Glucose 89 mg/dL (65-115); Osmolality Calculated 293 mOsm/kg (285-295); Potassium 4.2 mmol/L (3.5-5.1); Sodium 141 mmol/L (136-145); Total Bilirubin 0.3 mg/dL (0.15-1.2); Total Protein 6.6 g/dL (6.6-8.7)
[2025-04-12 13:43] LABS: Bilirubin Urine Negative (Negative); Blood Urine Negative (Negative); Glucose Urine UA Negative (Normal); Ketones Urine Trace (Negative); Leukocyte Esterase Urine Negative (Negative); Nitrate Urine Negative (Negative); Protein Urine Trace (Negative); Specific Gravity, Urine 1.029 (1.005-1.030); Urine Appearance Clear (CLEAR); Urine Color Yellow (Yellow); pH Urine 8.5 (5-7)
[2025-04-12 13:48] LABS: Add Urine Microscopic? YES; Bacteria Urine None Seen /hpf; Hyaline Casts Urine 19.02 /lpf; RBC Urine 0-2 /hpf (0-2); Squamous Epithelial Cell Urine 0-5 /hpf (0-5); WBC Urine 0-5 /hpf (0-5)
[2025-04-12 13:55] VITALS: BP 142/74; BP 155/74; BP 164/79; PULSE 58; PULSE 60; PULSE 64
[2025-04-12 14:07] LABS: UA Slide Review UA Slide Review Perf
[2025-04-12 14:08] LABS: Add Urine Culture? No
[2025-04-12 14:45] VITALS: BP 140/74; PULSE 60; O2SAT 94
== END 2025-04-12 14:46 | disposition home or self-care (01) ==
PROVIDERS: Emergency Provider Emergency Medicine; PCP Family Medicine
DX: R42 Dizziness and giddiness (principal); N28.9 Disorder of kidney and ureter, unspecified
CPT/HCPCS: 36415; 80053; 81001; 85025; 93005; 99284; J7030

== ENCOUNTER → 2025-04-26 08:25 | Outpatient (BNVA) | payer MEDICARE, SELFPAY | PROVIDERS: PCP Family Medicine; Visit Provider Orthopaedic Surgery | DX: Z98.890 Other specified postprocedural states (principal); Z98.1 Arthrodesis status | CPT/HCPCS: 72040; 99024 ==

== ENCOUNTER → 2025-06-07 09:10 | Outpatient (BNVA) | payer MEDICARE, SELFPAY | PROVIDERS: PCP Nurse Practitioner Family; Visit Provider Orthopaedic Surgery | DX: Z98.1 Arthrodesis status (principal) | CPT/HCPCS: 72040; 99024 ==

== ENCOUNTER → 2025-09-20 15:31 | Outpatient (BNVA) | payer MEDICARE, SELFPAY | PROVIDERS: PCP Nurse Practitioner Family; Visit Provider Orthopaedic Surgery | DX: Z98.890 Other specified postprocedural states (principal); Z98.1 Arthrodesis status | CPT/HCPCS: 72040; 99024 ==